=== PATIENT | female | born 1990 | race Caucasian/White ===

== ENCOUNTER 2016-05-02 10:16 | Emergency (ER) | payer MEDICAID ==
[~2016-05-02] VITALS: Ht 152.4 cm; Wt 54.2 kg
[2016-05-02 12:09] LABS: BASOPHIL % 0.2 % (0-2); PLATELET COUNT 182 x10^3mcL (130-400); RED CELL DISTRIBUTION WIDTH 13.9 % (11.5-14.5)
[2016-05-02 12:24] LABS: ALKALINE PHOSPHATASE 37 U/L (46-116); ALT/SGPT 17 U/L (14-59); AST/SGOT 15 U/L (15-37); BILIRUBIN TOTAL 0.52 mg/dL (0.20-1.00); CALCIUM 8.6 mg/dL (8.5-10.1); CARBON DIOXIDE 26.7 mmol/L (21-32); CHLORIDE SERUM 103 mmol/L (98-107); CREATININE SERUM 0.5 mg/dL (0.6-1.0); GFR1 > 60 mL/min; LIPASE 126 IU/L (73-393); POTASSIUM SERUM 3.3 mmol/L (3.5-5.1); SODIUM SERUM 137 mmol/L (136-145); TOTAL PROTEIN, SERUM 7.5 g/dL (6.4-8.2)
[2016-05-02 12:30] LABS: GLUCOSE SERUM 53 mg/dL (74-106)
[2016-05-02 14:52] VITALS: BP 102/46
== END 2016-05-02 14:52 | disposition home or self-care (01) ==
LOC: ED 10:16
PROVIDERS: Emergency Medicine
DX: O26.891 Other specified pregnancy related conditions, first trimester (principal); R19.7 Diarrhea, unspecified; R11.2 Nausea with vomiting, unspecified; R10.84 Generalized abdominal pain; Z88.1 Allergy status to other antibiotic agents; Z3A.01 Less than 8 weeks gestation of pregnancy

== ENCOUNTER 2016-05-09 10:52 | Emergency (ER) | payer MEDICAID ==
[~2016-05-09] VITALS: Ht 152.4 cm; Wt 55.8 kg
[2016-05-09 11:18] LABS: microscopic required? YES; urine erythrocyte 3+ (NEGATIVE)
[2016-05-09 11:45] LABS: BASOPHIL % 0.3 % (0-2); PLATELET COUNT 192 x10^3mcL (130-400); RED CELL DISTRIBUTION WIDTH 13.7 % (11.5-14.5)
[2016-05-09 12:43] VITALS: BP 94/46
== END 2016-05-09 12:43 | disposition home or self-care (01) ==
LOC: ED 10:52
PROVIDERS: Emergency Medicine
DX: O20.0 Threatened abortion (principal); Z3A.01 Less than 8 weeks gestation of pregnancy; Z88.1 Allergy status to other antibiotic agents

== ENCOUNTER 2016-05-11 09:54 | Emergency (ER) | payer MEDICAID ==
[~2016-05-11] VITALS: Ht 152.4 cm; Wt 55.9 kg
[2016-05-11 14:31] LABS: microscopic required? NO
[2016-05-11 14:51] LABS: BASOPHIL % 0.4 % (0-2); PLATELET COUNT 181 x10^3mcL (130-400); RED CELL DISTRIBUTION WIDTH 13.9 % (11.5-14.5)
[2016-05-11 15:04] LABS: urine erythrocyte NEGATIVE (NEGATIVE)
[2016-05-11 16:31] VITALS: BP 116/74
== END 2016-05-11 16:31 | disposition home or self-care (01) ==
LOC: ED 09:54
PROVIDERS: Emergency Medicine
DX: O20.0 Threatened abortion (principal); Z3A.01 Less than 8 weeks gestation of pregnancy

== ENCOUNTER 2016-09-22 18:47 | Emergency (ER) | payer MEDICAID | END 2016-09-22 23:46 | disposition home or self-care (01) | LOC: ED 18:47 | DX: O26.891 Other specified pregnancy related conditions, first trimester (principal); R42 Dizziness and giddiness; R35.0 Frequency of micturition; Z3A.01 Less than 8 weeks gestation of pregnancy; Z88.1 Allergy status to other antibiotic agents | CPT/HCPCS: J7030 ==

== ENCOUNTER 2018-07-07 15:54 | Emergency (ER) | payer MEDICAID ==
[~2018-07-07] VITALS: Ht 149.9 cm; Wt 57.2 kg
[2018-07-07 15:57] VITALS: Ht 149.9 cm; Wt 57.2 kg
[2018-07-07 16:36] LABS: BASOPHIL % 0.4 % (0-2); PLATELET COUNT 207 x10^3mcL (130-400); RED CELL DISTRIBUTION WIDTH 14.5 % (11.5-14.5)
[2018-07-07 16:48] LABS: CALCIUM 9.1 mg/dL (8.5-10.1); CARBON DIOXIDE 29.4 mmol/L (21-32); CHLORIDE SERUM 106 mmol/L (98-107); CREATININE SERUM 0.8 mg/dL (0.6-1.0); GFR1 > 60 mL/min; GLUCOSE SERUM 87 mg/dL (74-106); POTASSIUM SERUM 3.6 mmol/L (3.5-5.1); SODIUM SERUM 142 mmol/L (136-145)
[2018-07-07 16:53] LABS: ALBUMIN 3.8 g/dL (3.4-5.0); ALKALINE PHOSPHATASE 58 U/L (46-116); ALT/SGPT 26 U/L (14-59); AST/SGOT 12 U/L (15-37); BILIRUBIN TOTAL 0.3 mg/dL (0.20-1.00); TOTAL PROTEIN, SERUM 7.2 g/dL (6.4-8.2)
[2018-07-07 17:12] VITALS: BP 123/73
== END 2018-07-07 17:13 | disposition home or self-care (01) ==
LOC: ED 15:54
PROVIDERS: Emergency Medicine
DX: N61.0 Mastitis without abscess (principal); D64.9 Anemia, unspecified; Z88.1 Allergy status to other antibiotic agents
CPT/HCPCS: 36415